=== PATIENT | male | born 1990 | race Hispanic/Latino ===

== ENCOUNTER 2017-03-16 12:01 | Emergency (ER) | payer SELFPAY | END 2017-03-16 13:10 | disposition home or self-care (01) | LOC: ERS 12:01 | DX: S00.33XA Contusion of nose, initial encounter (principal); W50.0XXA Accidental hit or strike by another person, initial encounter; Y93.71 Activity, boxing | CPT/HCPCS: 99283 ==

== ENCOUNTER 2019-11-13 18:03 | Emergency (ER) | payer BC, OTHER ==
[2019-11-14 16:52] LABS: SARS-CoV-2 MS2 Positive; SARS-CoV-2 N Gene Negative; SARS-CoV-2 S Gene Negative; SARS-CoV-2 orf1ab Negative
== END 2019-11-13 18:49 | disposition home or self-care (01) ==
LOC: ERS 18:03
DX: Z20.828 Contact with and (suspected) exposure to other viral communicable diseases (principal)
CPT/HCPCS: 87635; 99283; U0003